=== PATIENT | male | born 1950 | race African-American/Black ===

== ENCOUNTER 2021-07-12 18:02 | Emergency (ER) | payer MEDICARE ==
[~2021-07-12] VITALS: Ht 172.7 cm; Wt 65.0 kg
[2021-07-12] MEDS ORDERED: OXYMETAZOLINE HCL NASAL SPRAY 15ML BOTHNSTRLS SCH (18:45)
[2021-07-12] MEDS ORDERED: CLONIDINE 0.2MG TABLET PO ONE (22:15)
[2021-07-12] MEDS ORDERED: CEPH500C2 MT (23:17)
[2021-07-12] MEDS ORDERED: HYDR25TA MT (23:17)
[2021-07-12 23:30] VITALS: BP 238/116
== END 2021-07-12 23:32 | disposition left against medical advice (07) ==
LOC: ER 18:18
DX: R04.0 Epistaxis (principal); I10 Essential (primary) hypertension; Z72.89 Other problems related to lifestyle
CPT/HCPCS: 30901; 99284